=== PATIENT | female | born 1980 | race Two or more races ===

== ENCOUNTER 2024-09-05 16:00 | Outpatient (RCR) | payer MEDICAID, SELFPAY ==
--- NOTE | 2024-08-28 17:49 | PT.ODAYNRPT ---
PT Outpatient Daily Note OP Daily Note Outpatient Physical Therapy Treatment Date: 08/28/24 Visit Reasons: Pain in in Right wrist Subjective: A little less pain of R wrist since last visit Objective: See F/S for therex MT: STM R APL and EPB tendons x7' Assessment: Pt has moderate TTP of R APL and EPB tendons and low pain of 1st CMC joint Plan: Continue per POC Length of Time (minutes) of Treatment: 30 Minutes Procedure Charges Therapeutic Exercise 30 minutes: Yes
--- NOTE | 2024-09-05 18:01 | PT.ODAYNRPT ---
PT Outpatient Daily Note OP Daily Note Outpatient Physical Therapy Treatment Date: 09/05/24 Visit Reasons: Pain in in Right wrist Subjective: Less pain of R wrist since last visit Objective: See F/S for therex MT: STM R APL and EPB tendons x7' Assessment: Pt has minTTP of R APL and EPB tendons and low pain of 1st CMC joint Plan: Continue per POC Length of Time (minutes) of Treatment: 30 Minutes Procedure Charges Therapeutic Exercise 30 minutes: Yes
== END 2024-09-22 23:59 | disposition home or self-care (01) ==
LOC: CPTX 16:00
PROVIDERS: PCP Nurse Practitioner; Referring Provider Nurse Practitioner; Visit Provider Nurse Practitioner
DX: M79.644 Pain in right finger(s) (principal); M25.531 Pain in right wrist
CPT/HCPCS: 97110

== ENCOUNTER → 2025-04-24 | Outpatient (CLI) | payer MEDICAID, SELFPAY ==
--- NOTE | 2025-04-24 08:45 | XR_ITS ---
Examination: Screening digital mammography, bilateral Computer aided detection 3-D breast Tomosynthesis, bilateral Date and time of exam: April 24, 2025 0919 hours Comparison made to mammograms dating to August 16, 2023 Indication: Screening Technique: Nonmagnified MLO, CC views of the breasts to been obtained, reconstructed from 3-D Tomosynthesis images. R2 computer aided detection program utilized for evaluation of suspicious masses and/or abnormal calcifications. 3-D Tomosynthesis images obtained. Findings: The breasts are heterogeneously dense, which may obscure small masses 6 mm focal asymmetry upper outer right breast posterior depth Impression: BI-RADS Category 0: Incomplete: Need additional imaging evaluation 6 mm focal asymmetry upper outer right breast posterior depth, recommend follow-up spot tomographic views of this asymmetry as well as right breast sonography to complete the workup.
== END | disposition home or self-care (01) ==
PROVIDERS: PCP Family Medicine; Referring Provider Family Medicine; Visit Provider Family Medicine
DX: Z12.31 Encounter for screening mammogram for malignant neoplasm of breast (principal); N64.89 Other specified disorders of breast
CPT/HCPCS: 77063; 77067

== ENCOUNTER → 2025-09-12 | Outpatient (CLI) | payer MEDICAID, SELFPAY ==
--- NOTE | 2025-09-12 12:00 | XR_ITS ---
Examination: Breast ultrasound, unilateral, right Date and time of exam: September 12, 2025, 12:52 p.m. INDICATIONS: Mammogram April 24, 2025 6 mm focal asymmetry upper outer right breast posterior depth Technique: Real-time arriaza scale ultrasonographic imaging performed right breast including all 4 quadrants as well as nipple retroareolar and axillary region. Findings: 1:00 oval mass lobular margins 5 x 7 mm IMPRESSION: BI-RADS Category 3: Probably benign findings Recommend 1 additional 6-month right breast sonogram follow-up to document stability of 1:00 nodule described above
--- NOTE | 2025-09-12 13:00 | XR_ITS ---
Examination: Diagnostic digital mammography, unilateral, right Computer aided detection 3-D breast Tomosynthesis, unilateral Date and time of exam: September 12, 2025: 1305 hours, comparison April 24, 2025 INDICATIONS: Mammogram April 24, 2025 6 mm focal asymmetry upper outer right breast Technique: Nonmagnified MLO, CC views of the right breast have been obtained, reconstructed from 3-D Tomosynthesis images. R2 computer aided detection program utilized for evaluation of suspicious masses and/or abnormal calcifications. 3-D Tomosynthesis images obtained. Findings: The breast is heterogeneously dense, which may obscure small masses Focal asymmetry remains outer right breast on the spot compression cc view, probably benign Impression: BI-RADS category 3: Probably benign findings 1 additional 6-month right mammogram follow-up recommended
== END | disposition home or self-care (01) ==
LOC: CDIM 12:26
PROVIDERS: PCP Family Medicine; Referring Provider Family Medicine; Visit Provider Family Medicine
DX: R92.331 Mammographic heterogeneous density, right breast (principal); N63.12 Unspecified lump in the right breast, upper inner quadrant
CPT/HCPCS: 76641; 77061; 77065; G0279